=== PATIENT | male | born 1940 | race Caucasian/White ===

== ENCOUNTER 2020-03-05 12:44 | Outpatient (CLI) | payer MEDICARE ==
--- NOTE | 2020-03-05 14:05 | MMO ---
Bilateral MAMMO Bilat Diag [facility]. CLINICAL HISTORY: Patient is 79 years old and is seen for diagnostic exam. The patient has no family history of breast cancer. The patient has no personal history of cancer. VIEWS: The views performed were: bilateral craniocaudal with tomosynthesis; bilateral mediolateral oblique with tomosynthesis; and bilateral mediolateral with tomosynthesis. FILMS COMPARED: The present examination has been compared to a prior imaging study performed at [facility] on 03/05/2020. This study has been interpreted with the assistance of computer-aided detection. MAMMOGRAM FINDINGS: There is fibrogalndular tissue in the subaerolar breasts, greater on the left. NO left breast mass is seen on mammo or US There are no suspicious masses, suspicious calcifications, or new areas of architectural distortion. IMPRESSION: THERE IS NO MAMMOGRAPHIC EVIDENCE OF MALIGNANCY. THE RESULTS OF THIS EXAM WERE SENT TO THE PATIENT. ACR BI-RADS Category 2 - Benign finding MAMMOGRAPHY NOTE: 1. A negative mammogram report should not delay a biopsy if a dominant of clinically suspicious mass is present. 2. Approximately 10% to 15% of breast cancers are not detected by mammography. 3. Adenosis and dense breasts may obscure an underlying neoplasm. Reported by: ANGEL VALDES MD Electonically Signed: [id number]
--- NOTE | 2020-03-05 14:50 | ULT ---
LEFT BREAST ULTRASOUND: HISTORY: Palpable abnormality of the left breast. FINDINGS: Palpable abnormality of the left breast. FINDINGS/IMPRESSION: Correlation is made with mammograms of the same date. Sonographic evaluation of the subareolar region/palpable area of the left breast demonstrates hypoech oic tissue with somewhat star shaped posterior border consistent with gynecomastia. No mass is seen. POS: OFF
== END 2020-03-05 12:45 | disposition home or self-care (01) ==
LOC: BICMAMMO 12:44
PROVIDERS: ATTEND Internal Medicine
DX: N63.20 Unspecified lump in the left breast, unspecified quadrant (principal); R92.8 Other abnormal and inconclusive findings on diagnostic imaging of breast
CPT/HCPCS: 76642; 77066; G0279

== ENCOUNTER 2020-07-24 07:58 | Outpatient (CLI) | payer MEDICARE | END 2020-07-24 07:59 | disposition home or self-care (01) | LOC: BICRAD 07:58 | PROVIDERS: ATTEND Internal Medicine | DX: S20.212A Contusion of left front wall of thorax, initial encounter (principal); S22.42XA Multiple fractures of ribs, left side, initial encounter for closed fracture; J98.4 Other disorders of lung | CPT/HCPCS: 71046 ==

== ENCOUNTER 2022-05-12 08:00 | Outpatient (CLI) | payer MEDICARE | END 2022-05-12 08:01 | disposition home or self-care (01) | LOC: PET 08:00 | PROVIDERS: ATTEND Internal Medicine Medical Oncology | DX: C43.39 Malignant melanoma of other parts of face (principal); R91.1 Solitary pulmonary nodule | CPT/HCPCS: 78816; A9552 ==

== ENCOUNTER 2022-09-14 06:49 | Inpatient (IN) | payer MEDICARE ==
[2022-09-14 07:53] LABS: ALT (SGPT) 28 U/L (8-55); AST (SGOT) 42 U/L (5-34); Albumin 3.7 g/dL (3.4-4.8); Alkaline Phosphatase 83 U/L (40-110); Anion Gap 17 mmol/L (10-20); BUN (Urea Nitrogen) 94 mg/dL (8.4-25.7); Bilirubin, Total 0.4 mg/dL (0.2-1.2); Calc. Creatinine Clearance 0 mL/min (70-130); Calcium 8.4 mg/dL (7.8-10.44); Carbon Dioxide 21 mmol/L (23-31); Chloride 101 mmol/L (98-107); Estimated GFR 17; Globulin 2.7 g/dL (2.4-3.5); Glucose 145 mg/dL (83-110); Potassium 3.9 mmol/L (3.5-5.1); Protein, Total 6.4 g/dL (5.8-8.1); Sodium 135 mmol/L (136-145)
[2022-09-14 08:05] LABS: #Eosinphils 0.2 thou/uL (0.0-0.7); #Lymphocytes 0.7 thou/uL (1.20-3.40); #Monocytes 0.6 thou/uL (0.11-0.59); #Neutrophils 5.2 thou/uL (1.40-6.50); %Basophils 0.1 % (0.0-1.0); %Eosinophils 2.2 % (0.0-10.0); %Monocytes 9.5 % (0.0-10.0); %Neutrophils 78.1 % (42.0-75.0); Eosinophils 2 % (0-10); Hemoglobin 9.9 g/dL (14.0-18.0); Lymphocytes 10 % (21-51); MDiff Complete? YES; Mean Corpuscular Hemoglobin 35.2 pg (27.0-31.0); Mean Platelet Volume 9.4 fL (7.4-10.4); Monocytes 7 % (0-10); Neutrophil 80 % (42-75); Platelet Count 115 10x3/uL (130-400); Platelet Morphology Comment Appears Decreased; Polychromasia SLIGHT = 2-3 cells (100X) (0-2/hpf); RBC Distribution Width 14.1 % (11.5-14.5); Reactive Lymphocytes 1 % (0-10); Red Blood Cell (RBC) Count 2.81 mill/uL (4.70-6.10); White Blood Cell (WBC) Count 6.7 10x3/uL (4.8-10.8)
[2022-09-14] MEDS ORDERED: Furosemide 40 MG/4 ML VIAL ONE (08:34)
[2022-09-14] MEDS ORDERED: Albumin 25% 25 GM/100 ML BOT IVPB SCH ×2 (09:15→12:00)
[2022-09-14] MEDS ORDERED: Ondansetron PF 4 MG/2 ML Vial IVP PRN (09:21)
[2022-09-14] MEDS: Albumin 25% 25 GM/100 ML BOT IVPB SCH ×2 (15:34→21:08)
[2022-09-14] MEDS: Furosemide 40 MG/4 ML VIAL SLOW IVP SCH (15:34)
[2022-09-14] MEDS: Carvedilol 6.25 MG TAB PO SCH (17:42)
[2022-09-14 17:49] VITALS: BMI 25.0
[2022-09-14] MEDS: Atorvastatin Calcium 40 MG TAB PO SCH (20:48)
[2022-09-14] MEDS: Acetaminophen 325 MG TAB PO PRN (20:49)
[2022-09-15] MEDS: Albumin 25% 25 GM/100 ML BOT IVPB SCH ×4 (03:43→17:45)
[2022-09-15] MEDS: Furosemide 40 MG/4 ML VIAL SLOW IVP SCH ×2 (05:36→14:51)
[2022-09-15] MEDS: Levothyroxine Sodium 100 MCG TAB PO SCH (05:36)
[2022-09-15 06:36] LABS: #Eosinphils 0.1 thou/uL (0.0-0.7); #Lymphocytes 0.6 thou/uL (1.20-3.40); #Monocytes 0.5 thou/uL (0.11-0.59); #Neutrophils 4.1 thou/uL (1.40-6.50); %Basophils 0.3 % (0.0-1.0); %Eosinophils 2.3 % (0.0-10.0); %Lymphocytes 11.4 % (21.0-51.0); Hemoglobin 8.9 g/dL (14.0-18.0); Mean Corpuscular HGB CONC 33.3 g/dL (32.0-36.0); Mean Corpuscular Hemoglobin 35.6 pg (27.0-31.0); Mean Platelet Volume 8.9 fL (7.4-10.4); Platelet Count 111 10x3/uL (130-400); Red Blood Cell (RBC) Count 2.49 mill/uL (4.70-6.10); White Blood Cell (WBC) Count 5.4 10x3/uL (4.8-10.8)
[2022-09-15 06:57] LABS: Anion Gap 16 mmol/L (10-20); BUN (Urea Nitrogen) 97 mg/dL (8.4-25.7); Calc. Creatinine Clearance 16 mL/min (70-130); Calcium 8.5 mg/dL (7.8-10.44); Carbon Dioxide 23 mmol/L (23-31); Chloride 101 mmol/L (98-107); Estimated GFR 16; Glucose 105 mg/dL (83-110); Potassium 3.5 mmol/L (3.5-5.1); Sodium 136 mmol/L (136-145)
[2022-09-15] MEDS: Amiodarone 200 MG TAB PO SCH (08:35)
[2022-09-15] MEDS: Carvedilol 6.25 MG TAB PO SCH ×2 (08:36→17:45)
[2022-09-15] MEDS ORDERED: Rivaroxaban 10 MG TAB PO SCH (09:00)
[2022-09-15] MEDS: Atorvastatin Calcium 40 MG TAB PO SCH (20:18)
[2022-09-16] MEDS: Albumin 25% 25 GM/100 ML BOT IVPB SCH ×4 (00:05→16:46)
[2022-09-16] MEDS: Furosemide 40 MG/4 ML VIAL SLOW IVP SCH ×2 (05:19→14:17)
[2022-09-16] MEDS: Levothyroxine Sodium 100 MCG TAB PO SCH (05:19)
[2022-09-16] MEDS: Carvedilol 6.25 MG TAB PO SCH ×2 (07:52→16:46)
[2022-09-16] MEDS: Amiodarone 200 MG TAB PO SCH (07:52)
[2022-09-16] MEDS: Acetaminophen 325 MG TAB PO PRN ×2 (07:52→19:56)
[2022-09-16 08:47] LABS: Anion Gap 17 mmol/L (10-20); BUN (Urea Nitrogen) 103 mg/dL (8.4-25.7); Calc. Creatinine Clearance 16 mL/min (70-130); Calcium 8.8 mg/dL (7.8-10.44); Carbon Dioxide 22 mmol/L (23-31); Chloride 100 mmol/L (98-107); Estimated GFR 16; Glucose 100 mg/dL (83-110); Potassium 3.4 mmol/L (3.5-5.1); Sodium 136 mmol/L (136-145)
[2022-09-16 09:31] LABS: #Eosinphils 0.1 thou/uL (0.0-0.7); #Lymphocytes 0.7 thou/uL (1.20-3.40); #Monocytes 0.6 thou/uL (0.11-0.59); #Neutrophils 4.3 thou/uL (1.40-6.50); %Basophils 0.1 % (0.0-1.0); %Eosinophils 2.1 % (0.0-10.0); %Lymphocytes 12.2 % (21.0-51.0); %Neutrophils 74.5 % (42.0-75.0); Hemoglobin 8.3 g/dL (14.0-18.0); Mean Corpuscular HGB CONC 31.6 g/dL (32.0-36.0); Mean Corpuscular Hemoglobin 33.7 pg (27.0-31.0); Mean Platelet Volume 9.5 fL (7.4-10.4); Platelet Count 111 10x3/uL (130-400); RBC Distribution Width 14.3 % (11.5-14.5); Red Blood Cell (RBC) Count 2.47 mill/uL (4.70-6.10); White Blood Cell (WBC) Count 5.4 10x3/uL (4.8-10.8)
[2022-09-16] MEDS ORDERED: EPOETIN ALFA-EPBX (ESRD) 10,000 UNIT/ML VIAL SC SCH (11:15)
[2022-09-16] MEDS: Rivaroxaban 15 MG TAB PO SCH (16:46)
[2022-09-16] MEDS ORDERED: Tamsulosin HCl 0.4 MG CAP PO SCH (18:45)
[2022-09-16] MEDS: Morphine 2 MG/ML VIAL SLOW IVP SCH ×2 (19:58→23:19)
[2022-09-16] MEDS: Atorvastatin Calcium 40 MG TAB PO SCH (21:20)
[2022-09-16] MEDS: Sacubitril 24MG/Valsartan 26 MG TAB PO SCH (21:22)
[2022-09-16] MEDS ORDERED: Morphine 2 MG/ML VIAL SLOW IVP SCH (23:00)
[2022-09-17] MEDS: Albumin 25% 25 GM/100 ML BOT IVPB SCH ×2 (00:59→05:24)
[2022-09-17] MEDS: Levothyroxine Sodium 100 MCG TAB PO SCH (05:24)
[2022-09-17] MEDS: Furosemide 40 MG/4 ML VIAL SLOW IVP SCH ×2 (05:24→13:16)
[2022-09-17 07:18] LABS: #Eosinphils 0.1 thou/uL (0.0-0.7); #Lymphocytes 0.9 thou/uL (1.20-3.40); #Monocytes 0.7 thou/uL (0.11-0.59); #Neutrophils 6.1 thou/uL (1.40-6.50); %Basophils 0.1 % (0.0-1.0); %Lymphocytes 11.2 % (21.0-51.0); %Monocytes 9.5 % (0.0-10.0); %Neutrophils 78.2 % (42.0-75.0); Hemoglobin 8.7 g/dL (14.0-18.0); Mean Corpuscular HGB CONC 33.8 g/dL (32.0-36.0); Mean Corpuscular Hemoglobin 35.6 pg (27.0-31.0); Mean Platelet Volume 9.4 fL (7.4-10.4); Platelet Count 110 10x3/uL (130-400); RBC Distribution Width 14.3 % (11.5-14.5); Red Blood Cell (RBC) Count 2.44 mill/uL (4.70-6.10); White Blood Cell (WBC) Count 7.8 10x3/uL (4.8-10.8)
[2022-09-17 07:34] LABS: Anion Gap 18 mmol/L (10-20); BUN (Urea Nitrogen) 110 mg/dL (8.4-25.7); Calc. Creatinine Clearance 15 mL/min (70-130); Calcium 8.9 mg/dL (7.8-10.44); Carbon Dioxide 22 mmol/L (23-31); Chloride 97 mmol/L (98-107); Estimated GFR 15; Glucose 100 mg/dL (83-110); Potassium 3.3 mmol/L (3.5-5.1); Sodium 134 mmol/L (136-145)
[2022-09-17] MEDS: Sacubitril 24MG/Valsartan 26 MG TAB PO SCH (08:22)
[2022-09-17] MEDS: Carvedilol 6.25 MG TAB PO SCH ×2 (08:22→17:28)
[2022-09-17] MEDS: Ferrous Sulfate 325 MG TAB PO SCH (08:22)
[2022-09-17] MEDS: Amiodarone 200 MG TAB PO SCH (08:22)
[2022-09-17 08:44] LABS: Iron 27 ug/dL (65-175); Iron Binding Capacity, Total 156 mcg/dL (261-462)
[2022-09-17 08:46] LABS: Anion Gap 19 mmol/L (10-20); BUN (Urea Nitrogen) 112 mg/dL (8.4-25.7); BUN/Creatinine Ratio 28.35; Calc. Creatinine Clearance 15 mL/min (70-130); Calcium 9.1 mg/dL (7.8-10.44); Carbon Dioxide 21 mmol/L (23-31); Chloride 98 mmol/L (98-107); Estimated GFR 14; Glucose 131 mg/dL (83-110); Magnesium 2.7 mg/dL (1.6-2.6); Phosphorus 5.1 mg/dL (2.3-4.7); Potassium 3.2 mmol/L (3.5-5.1); Sodium 135 mmol/L (136-145)
[2022-09-17] MEDS ORDERED: Potassium Chloride 20 MEQ TAB PO SCH (10:30)
[2022-09-17] MEDS ORDERED: Artificial Tear Sol 15 ML BOT EA EYE PRN (12:09)
[2022-09-17] MEDS ORDERED: Moisturizing Cream (Eucerin) 113 GM JAR TOP PRN (12:09)
[2022-09-17] MEDS ORDERED: Polyethylene Glycol 3350 17 GM Packet PO SCH (12:15)
[2022-09-17] MEDS: Sodium Bicarbonate Tab 325 MG TAB PO SCH ×2 (15:46→20:24)
[2022-09-17] MEDS: Rivaroxaban 15 MG TAB PO SCH (17:27)
[2022-09-17] MEDS: Potassium Chloride 20 MEQ TAB PO SCH (20:23)
[2022-09-17] MEDS: Tamsulosin HCl 0.4 MG CAP PO SCH (20:24)
[2022-09-17] MEDS: Atorvastatin Calcium 40 MG TAB PO SCH (20:24)
[2022-09-17] MEDS: Senokot S 8.6-50 MG TAB PO PRN (20:24)
[2022-09-18] MEDS: Levothyroxine Sodium 100 MCG TAB PO SCH (05:05)
[2022-09-18 07:56] LABS: Albumin 4.2 g/dL (3.4-4.8); Anion Gap 19 mmol/L (10-20); BUN (Urea Nitrogen) 117 mg/dL (8.4-25.7); BUN/Creatinine Ratio 27.15; Calc. Creatinine Clearance 13 mL/min (70-130); Calcium 8.7 mg/dL (7.8-10.44); Carbon Dioxide 22 mmol/L (23-31); Chloride 97 mmol/L (98-107); Estimated GFR 13; Glucose 126 mg/dL (83-110); Phosphorus 4.8 mg/dL (2.3-4.7); Potassium 4.3 mmol/L (3.5-5.1); Sodium 134 mmol/L (136-145)
[2022-09-18] MEDS: Potassium Chloride 20 MEQ TAB PO SCH ×2 (08:03→20:10)
[2022-09-18] MEDS: Ferrous Sulfate 325 MG TAB PO SCH ×2 (08:03→20:10)
[2022-09-18] MEDS: Amiodarone 200 MG TAB PO SCH (08:03)
[2022-09-18] MEDS: Sodium Bicarbonate Tab 325 MG TAB PO SCH ×3 (08:03→20:10)
[2022-09-18] MEDS: Polyethylene Glycol 3350 17 GM Packet PO SCH (08:04)
[2022-09-18] MEDS: Carvedilol 6.25 MG TAB PO SCH (10:50)
[2022-09-18] MEDS ORDERED: Iron, Sodium Ferric Gluconate 250 MG in Sodium Chloride 0.9% 250 ML 250 ML IVPB SCH (14:30)
[2022-09-18] MEDS ORDERED: EPOETIN ALFA-EPBX (ESRD) 10,000 UNIT/ML VIAL SC SCH (14:30)
[2022-09-18] MEDS ORDERED: Metolazone 5 MG TAB PO SCH (14:30)
[2022-09-18] MEDS ORDERED: Furosemide 40 MG/4 ML VIAL SLOW IVP SCH ×3 (14:30→21:00)
[2022-09-18] MEDS: Bisacodyl 5 MG TAB PO PRN (16:04)
[2022-09-18] MEDS: Rivaroxaban 15 MG TAB PO SCH (16:20)
[2022-09-18] MEDS: Tamsulosin HCl 0.4 MG CAP PO SCH (20:10)
[2022-09-18] MEDS: Carvedilol 3.125 MG TAB PO SCH (20:10)
[2022-09-18] MEDS: Atorvastatin Calcium 40 MG TAB PO SCH (20:10)
[2022-09-18] MEDS: Senokot S 8.6-50 MG TAB PO PRN (23:43)
[2022-09-19] MEDS: Acetaminophen 325 MG TAB PO PRN (01:13)
[2022-09-19] MEDS: Levothyroxine Sodium 100 MCG TAB PO SCH (05:31)
[2022-09-19 06:19] LABS: Anion Gap 17 mmol/L (10-20); BUN (Urea Nitrogen) 124 mg/dL (8.4-25.7); Calc. Creatinine Clearance 13 mL/min (70-130); Calcium 8.4 mg/dL (7.8-10.44); Carbon Dioxide 23 mmol/L (23-31); Chloride 99 mmol/L (98-107); Estimated GFR 13; Glucose 104 mg/dL (83-110); Potassium 5.5 mmol/L (3.5-5.1); Sodium 133 mmol/L (136-145)
[2022-09-19] MEDS ORDERED: Calcium Gluconate 4.6 MEQ in Sodium Chloride 0.9% 100 ML IVPB ONE (07:19)
[2022-09-19] MEDS ORDERED: Dextrose 50% Abboject 50 ML SYRINGE SLOW IVP SCH (07:19)
[2022-09-19] MEDS ORDERED: Insulin Regular 300 UNITS/3 ML VIAL IVP SCH (07:30)
[2022-09-19] MEDS: CALCIUM GLUC 1 GM/NS 50 ML 1 GM in Premix Bag 1 BAG IVPB SCH ×2 (09:00→09:15)
[2022-09-19] MEDS: Sodium Bicarbonate Tab 325 MG TAB PO SCH ×3 (09:13→20:03)
[2022-09-19] MEDS: Amiodarone 200 MG TAB PO SCH (09:14)
[2022-09-19] MEDS: Ferrous Sulfate 325 MG TAB PO SCH ×2 (09:14→20:03)
[2022-09-19] MEDS: Carvedilol 3.125 MG TAB PO SCH ×2 (09:14→20:02)
[2022-09-19] MEDS: Furosemide 40 MG/4 ML VIAL SLOW IVP SCH (09:14)
[2022-09-19] MEDS: Polyethylene Glycol 3350 17 GM Packet PO SCH (11:02)
[2022-09-19 13:51] LABS: Anion Gap 17 mmol/L (10-20); BUN (Urea Nitrogen) 123 mg/dL (8.4-25.7); Calc. Creatinine Clearance 13 mL/min (70-130); Calcium 9.2 mg/dL (7.8-10.44); Carbon Dioxide 25 mmol/L (23-31); Chloride 97 mmol/L (98-107); Estimated GFR 12; Glucose 90 mg/dL (83-110); Sodium 134 mmol/L (136-145)
[2022-09-19] MEDS: Atorvastatin Calcium 40 MG TAB PO SCH (20:02)
[2022-09-19] MEDS: Tamsulosin HCl 0.4 MG CAP PO SCH (20:03)
[2022-09-20] MEDS: Levothyroxine Sodium 100 MCG TAB PO SCH (05:00)
[2022-09-20 06:09] LABS: #Eosinphils 0.3 thou/uL (0.0-0.7); #Monocytes 0.9 thou/uL (0.11-0.59); #Neutrophils 5.5 thou/uL (1.40-6.50); %Basophils 0.1 % (0.0-1.0); %Lymphocytes 12.5 % (21.0-51.0); %Monocytes 12.2 % (0.0-10.0); %Neutrophils 71.2 % (42.0-75.0); Hemoglobin 8.8 g/dL (14.0-18.0); Mean Corpuscular HGB CONC 33.5 g/dL (32.0-36.0); Mean Corpuscular Hemoglobin 35.3 pg (27.0-31.0); Mean Platelet Volume 8.3 fL (7.4-10.4); Platelet Count 159 10x3/uL (130-400); RBC Distribution Width 14.5 % (11.5-14.5); Red Blood Cell (RBC) Count 2.49 mill/uL (4.70-6.10); White Blood Cell (WBC) Count 7.7 10x3/uL (4.8-10.8)
[2022-09-20 06:36] LABS: Anion Gap 18 mmol/L (10-20); Calc. Creatinine Clearance 14 mL/min (70-130); Calcium 8.7 mg/dL (7.8-10.44); Carbon Dioxide 23 mmol/L (23-31); Chloride 98 mmol/L (98-107); Estimated GFR 13; Glucose 110 mg/dL (83-110); Potassium 4.5 mmol/L (3.5-5.1); Sodium 134 mmol/L (136-145)
[2022-09-20 06:48] LABS: BUN (Urea Nitrogen) 113 mg/dL (8.4-25.7)
[2022-09-20] MEDS: Carvedilol 3.125 MG TAB PO SCH ×2 (08:25→20:04)
[2022-09-20] MEDS: Sodium Bicarbonate Tab 325 MG TAB PO SCH ×3 (08:26→20:03)
[2022-09-20] MEDS ORDERED: Tuberculin PPD 0.1 ML VIAL I-DERMAL SCH (09:00)
[2022-09-20] MEDS ORDERED: EPOETIN ALFA-EPBX (ESRD) 10,000 UNIT/ML VIAL SC SCH (10:00)
[2022-09-20 10:20] LABS: HBSAB Concentration Less than 8.00 mIU/mL; HBSAg Index 0.27 S/CO (0-0.99); Hep B Core Total Ab Non-Reactive (NonReactive); Hep B Core Total Index 0.09 S/CO (0-0.79); Hep B Surf AB Non-Reactive (NonReactive); Hep B Surf Ag Non-Reactive S/CO (NonReactive); Hep C IgG Ab Non-Reactive (NonReactive); Hep C Index 0.09 S/CO (0-0.79)
[2022-09-20] MEDS ORDERED: Bupivacaine HCl 0.5%/Epinephrine 1:200,000/PF 30 ml Vial ONE (11:44)
[2022-09-20] MEDS ORDERED: Lidocaine 2% PF 5 ML VIAL ONE (11:44)
[2022-09-20] MEDS ORDERED: Heparin 10,000 UNITS/ 10 ML VIAL ONE (11:44)
[2022-09-20] MEDS ORDERED: FENTANYL 50 MCG/ML 1 ML VIAL ONE (11:45)
[2022-09-20] MEDS ORDERED: Ketamine 50 MG/ML (10ML VIAL) ONE (11:48)
[2022-09-20] MEDS ORDERED: PROPOFOL 20 ML ONE (11:48)
[2022-09-20] MEDS ORDERED: Lidocaine 1% PF 5 ML VIAL ONE (12:04)
[2022-09-20] MEDS ORDERED: Ondansetron HCl/PF 4 MG/2 ML Vial IVP PRN (12:32)
[2022-09-20] MEDS ORDERED: Promethazine HCl 25 MG/ML VIAL IM PRN (12:32)
[2022-09-20] MEDS: Amiodarone 200 MG TAB PO SCH (14:48)
[2022-09-20] MEDS: Furosemide 40 MG/4 ML VIAL SLOW IVP SCH (14:48)
[2022-09-20] MEDS: Ferrous Sulfate 325 MG TAB PO SCH ×2 (14:49→20:04)
[2022-09-20] MEDS: Polyethylene Glycol 3350 17 GM Packet PO SCH (14:49)
[2022-09-20] MEDS: Acetaminophen 325 MG TAB PO PRN (20:02)
[2022-09-20] MEDS: Atorvastatin Calcium 40 MG TAB PO SCH (20:03)
[2022-09-20] MEDS: Tamsulosin HCl 0.4 MG CAP PO SCH (20:04)
[2022-09-21] MEDS: Acetaminophen 325 MG TAB PO PRN ×2 (02:25→20:45)
[2022-09-21] MEDS: Levothyroxine Sodium 100 MCG TAB PO SCH ×2 (05:22→05:28)
[2022-09-21] MEDS: Bisacodyl 5 MG TAB PO PRN (05:28)
[2022-09-21] MEDS: Senokot S 8.6-50 MG TAB PO PRN (05:28)
[2022-09-21 06:52] LABS: #Eosinphils 0.2 thou/uL (0.0-0.7); #Lymphocytes 0.9 thou/uL (1.20-3.40); #Monocytes 0.7 thou/uL (0.11-0.59); #Neutrophils 4.9 thou/uL (1.40-6.50); %Basophils 0.2 % (0.0-1.0); %Eosinophils 3.4 % (0.0-10.0); %Lymphocytes 12.7 % (21.0-51.0); %Monocytes 10.8 % (0.0-10.0); %Neutrophils 72.9 % (42.0-75.0); Hemoglobin 8.4 g/dL (14.0-18.0); Mean Corpuscular HGB CONC 32.3 g/dL (32.0-36.0); Mean Corpuscular Hemoglobin 34.4 pg (27.0-31.0); Mean Platelet Volume 7.6 fL (7.4-10.4); Platelet Count 165 10x3/uL (130-400); RBC Distribution Width 14.8 % (11.5-14.5); Red Blood Cell (RBC) Count 2.45 mill/uL (4.70-6.10); White Blood Cell (WBC) Count 6.7 10x3/uL (4.8-10.8)
[2022-09-21 07:13] LABS: Anion Gap 16 mmol/L (10-20); Calc. Creatinine Clearance 14 mL/min (70-130); Calcium 8.9 mg/dL (7.8-10.44); Carbon Dioxide 24 mmol/L (23-31); Chloride 100 mmol/L (98-107); Estimated GFR 14; Glucose 129 mg/dL (83-110); Potassium 4.4 mmol/L (3.5-5.1); Sodium 136 mmol/L (136-145)
[2022-09-21 07:24] LABS: BUN (Urea Nitrogen) 113 mg/dL (8.4-25.7)
[2022-09-21] MEDS ORDERED: Heparin 10,000 UNITS/ 10 ML VIAL ONE (08:54)
[2022-09-21 10:18] LABS: HBSAB Concentration Less than 8.00 mIU/mL; HBSAg Index 0.27 S/CO (0-0.99); Hep B Core Total Ab Non-Reactive (NonReactive); Hep B Core Total Index 0.08 S/CO (0-0.79); Hep B Surf AB Non-Reactive (NonReactive); Hep B Surf Ag Non-Reactive S/CO (NonReactive); Hep C IgG Ab Non-Reactive (NonReactive); Hep C Index 0.08 S/CO (0-0.79)
[2022-09-21] MEDS: Ferrous Sulfate 325 MG TAB PO SCH ×2 (10:26→20:45)
[2022-09-21] MEDS: Amiodarone 200 MG TAB PO SCH (10:26)
[2022-09-21] MEDS: Carvedilol 3.125 MG TAB PO SCH ×2 (10:27→20:45)
[2022-09-21] MEDS: Polyethylene Glycol 3350 17 GM Packet PO SCH ×2 (10:36→10:38)
[2022-09-21] MEDS: Rivaroxaban 15 MG TAB PO SCH (17:23)
[2022-09-21] MEDS: Atorvastatin Calcium 40 MG TAB PO SCH (20:42)
[2022-09-21] MEDS: Tamsulosin HCl 0.4 MG CAP PO SCH (20:45)
[2022-09-22] MEDS: Levothyroxine Sodium 100 MCG TAB PO SCH (06:14)
[2022-09-22 07:53] LABS: Anion Gap 20 mmol/L (10-20); BUN (Urea Nitrogen) 105 mg/dL (8.4-25.7); Calc. Creatinine Clearance 15 mL/min (70-130); Calcium 8.4 mg/dL (7.8-10.44); Carbon Dioxide 20 mmol/L (23-31); Chloride 100 mmol/L (98-107); Estimated GFR 15; Glucose 104 mg/dL (83-110); Potassium 4.5 mmol/L (3.5-5.1); Sodium 135 mmol/L (136-145)
[2022-09-22] MEDS ORDERED: Heparin 10,000 UNITS/ 10 ML VIAL ONE (09:00)
[2022-09-22] MEDS ORDERED: EPOETIN ALFA-EPBX (ESRD) 10,000 UNIT/ML VIAL SC SCH (09:00)
[2022-09-22] MEDS: Amiodarone 200 MG TAB PO SCH (09:12)
[2022-09-22] MEDS: Polyethylene Glycol 3350 17 GM Packet PO SCH (09:12)
[2022-09-22] MEDS: Carvedilol 3.125 MG TAB PO SCH ×2 (09:12→20:20)
[2022-09-22] MEDS: Ferrous Sulfate 325 MG TAB PO SCH ×2 (09:12→20:20)
[2022-09-22] MEDS: Rivaroxaban 15 MG TAB PO SCH (16:32)
[2022-09-22] MEDS: Tamsulosin HCl 0.4 MG CAP PO SCH (20:20)
[2022-09-22] MEDS: Atorvastatin Calcium 40 MG TAB PO SCH (20:20)
[2022-09-23] MEDS: Levothyroxine Sodium 100 MCG TAB PO SCH (05:55)
[2022-09-23 06:50] LABS: #Eosinphils 0.2 thou/uL (0.0-0.7); #Lymphocytes 0.8 thou/uL (1.20-3.40); #Monocytes 0.9 thou/uL (0.11-0.59); #Neutrophils 5.1 thou/uL (1.40-6.50); %Basophils 0.2 % (0.0-1.0); %Eosinophils 2.6 % (0.0-10.0); %Lymphocytes 11.2 % (21.0-51.0); %Monocytes 13.5 % (0.0-10.0); %Neutrophils 72.5 % (42.0-75.0); Hemoglobin 8.4 g/dL (14.0-18.0); Mean Corpuscular HGB CONC 32.5 g/dL (32.0-36.0); Mean Corpuscular Hemoglobin 34.9 pg (27.0-31.0); Mean Platelet Volume 7.5 fL (7.4-10.4); Platelet Count 166 10x3/uL (130-400); RBC Distribution Width 14.8 % (11.5-14.5); Red Blood Cell (RBC) Count 2.41 mill/uL (4.70-6.10)
[2022-09-23 07:10] LABS: Anion Gap 13 mmol/L (10-20); BUN (Urea Nitrogen) 70 mg/dL (8.4-25.7); Calc. Creatinine Clearance 19 mL/min (70-130); Calcium 8.5 mg/dL (7.8-10.44); Carbon Dioxide 27 mmol/L (23-31); Chloride 100 mmol/L (98-107); Estimated GFR 20; Glucose 106 mg/dL (83-110); Potassium 4.2 mmol/L (3.5-5.1); Sodium 136 mmol/L (136-145)
[2022-09-23] MEDS ORDERED: READ PPD TEST SITE PO SCH (08:00)
[2022-09-23] MEDS: Carvedilol 3.125 MG TAB PO SCH ×2 (11:11→20:23)
[2022-09-23] MEDS: Amiodarone 200 MG TAB PO SCH (11:11)
[2022-09-23] MEDS: Ferrous Sulfate 325 MG TAB PO SCH ×2 (11:11→20:23)
[2022-09-23] MEDS: Polyethylene Glycol 3350 17 GM Packet PO SCH (11:11)
[2022-09-23] MEDS ORDERED: Heparin 10,000 UNITS/ 10 ML VIAL ONE (11:42)
[2022-09-23] MEDS: Tamsulosin HCl 0.4 MG CAP PO SCH (20:23)
[2022-09-23] MEDS: Atorvastatin Calcium 40 MG TAB PO SCH (20:23)
[2022-09-23] MEDS: Apixaban 2.5 MG TAB PO SCH (20:23)
[2022-09-24] MEDS: Levothyroxine Sodium 100 MCG TAB PO SCH (05:54)
[2022-09-24 07:47] LABS: #Eosinphils 0.2 thou/uL (0.0-0.7); #Lymphocytes 0.9 thou/uL (1.20-3.40); #Neutrophils 5.8 thou/uL (1.40-6.50); %Basophils 0.1 % (0.0-1.0); %Lymphocytes 11.8 % (21.0-51.0); %Neutrophils 73.1 % (42.0-75.0); Hemoglobin 8.3 g/dL (14.0-18.0); Mean Corpuscular HGB CONC 32.4 g/dL (32.0-36.0); Mean Platelet Volume 7.8 fL (7.4-10.4); Platelet Count 161 10x3/uL (130-400); RBC Distribution Width 14.8 % (11.5-14.5); Red Blood Cell (RBC) Count 2.37 mill/uL (4.70-6.10); White Blood Cell (WBC) Count 7.9 10x3/uL (4.8-10.8)
[2022-09-24 08:02] LABS: Anion Gap 14 mmol/L (10-20); BUN (Urea Nitrogen) 45 mg/dL (8.4-25.7); Calc. Creatinine Clearance 22 mL/min (70-130); Calcium 8.5 mg/dL (7.8-10.44); Carbon Dioxide 26 mmol/L (23-31); Chloride 98 mmol/L (98-107); Estimated GFR 24; Glucose 102 mg/dL (83-110); Potassium 4.1 mmol/L (3.5-5.1); Sodium 134 mmol/L (136-145)
[2022-09-24] MEDS: Amiodarone 200 MG TAB PO SCH (08:13)
[2022-09-24] MEDS: Carvedilol 3.125 MG TAB PO SCH (08:13)
[2022-09-24] MEDS: Ferrous Sulfate 325 MG TAB PO SCH (08:46)
[2022-09-24] MEDS: Apixaban 2.5 MG TAB PO SCH (08:46)
[2022-09-24] MEDS: Polyethylene Glycol 3350 17 GM Packet PO SCH (09:37)
[2022-09-24 14:38] VITALS: BP 118/71; TEMP 98.6
== END 2022-09-24 16:10 | disposition home or self-care (01) | DRG 674 ==
LOC: ERS 06:49 → ERHOLD 08:42 → T4-A 12:31
PROVIDERS: ADMIT Internal Medicine; ATTEND Internal Medicine
PROC: 0T9B80Z Drainage of Bladder with Drainage Device, Via Natural or Artificial Opening Endoscopic (ICD-10-PCS; 2022-09-17)
PROC: 0JH60XZ Insertion of Tunneled Vascular Access Device into Chest Subcutaneous Tissue and Fascia, Open Approach (ICD-10-PCS; 2022-09-20)
PROC: 02H633Z Insertion of Infusion Device into Right Atrium, Percutaneous Approach (ICD-10-PCS; 2022-09-20)
PROC: B5181ZA Fluoroscopy of Superior Vena Cava using Low Osmolar Contrast, Guidance (ICD-10-PCS; 2022-09-20)
PROC: 5A1D70Z Performance of Urinary Filtration, Intermittent, Less than 6 Hours Per Day (ICD-10-PCS; principal; 2022-09-21)
DX: N17.9 Acute kidney failure, unspecified (principal); E87.1 Hypo-osmolality and hyponatremia; I50.32 Chronic diastolic (congestive) heart failure; I13.2 Hypertensive heart and chronic kidney disease with heart failure and with stage 5 chronic kidney disease, or end stage renal disease; I48.20 Chronic atrial fibrillation, unspecified; I42.9 Cardiomyopathy, unspecified; N13.8 Other obstructive and reflux uropathy; N18.6 End stage renal disease; D63.1 Anemia in chronic kidney disease; D50.9 Iron deficiency anemia, unspecified; E78.5 Hyperlipidemia, unspecified; C43.9 Malignant melanoma of skin, unspecified; E03.9 Hypothyroidism, unspecified; N40.1 Benign prostatic hyperplasia with lower urinary tract symptoms; R33.8 Other retention of urine; I87.2 Venous insufficiency (chronic) (peripheral); I25.10 Atherosclerotic heart disease of native coronary artery without angina pectoris; E87.5 Hyperkalemia; E83.39 Other disorders of phosphorus metabolism; E87.6 Hypokalemia; Z88.8 Allergy status to other drugs, medicaments and biological substances; Z91.041 Radiographic dye allergy status; Z79.899 Other long term (current) drug therapy; Z79.01 Long term (current) use of anticoagulants; Z95.1 Presence of aortocoronary bypass graft; Z79.890 Hormone replacement therapy; Z98.890 Other specified postprocedural states; Z82.49 Family history of ischemic heart disease and other diseases of the circulatory system; Z95.810 Presence of automatic (implantable) cardiac defibrillator
CPT/HCPCS: 36415; 36416; 71045; 74176; 76870; 80048; 80053; 80069; 82728; 83540; 83550; 83735; 83880; 85025; 86580; 86704; 90935; 93005; 93306; 93976; 96374; 96375; C1752; G0257; J0611; J1644; J1815; J1940; J2001; J2272; J2704; J2916; J3010; J7050; J7999; P9047; Q5105

== ENCOUNTER 2022-09-26 11:32 | Inpatient (IN) | payer MEDICARE ==
[2022-09-26 12:28] LABS: #Eosinphils 0.1 thou/uL (0.0-0.7); #Lymphocytes 0.7 thou/uL (1.20-3.40); #Monocytes 0.8 thou/uL (0.11-0.59); #Neutrophils 8.4 thou/uL (1.40-6.50); %Basophils 0.2 % (0.0-1.0); %Eosinophils 1.2 % (0.0-10.0); %Lymphocytes 7.1 % (21.0-51.0); %Monocytes 7.5 % (0.0-10.0); Mean Corpuscular HGB CONC 30.1 g/dL (32.0-36.0); Mean Corpuscular Hemoglobin 32.4 pg (27.0-31.0); Mean Platelet Volume 8.1 fL (7.4-10.4); Platelet Count 200 10x3/uL (130-400); RBC Distribution Width 14.8 % (11.5-14.5); Red Blood Cell (RBC) Count 2.77 mill/uL (4.70-6.10)
[2022-09-26 12:40] LABS: Bilirubin Unable to Interpret (Negative); Blood, Urine Unable to Interpret (Negative); Clarity Hazy (Clear); Glucose, Urine (Dipstick) Unable to Interpret mg/dL (Negative); Ketone, Urine Unable to Interpret mg/dL (Negative); Leukocyte Unable to Interpret Leu/uL (Negative); Nitrite Unable to Interpret (Negative); Protein, Urine (Dipstick) Unable to Interpret mg/dL (Neg-Trace); Specific Gravity, Urine 1.018 (1.002-1.036); Urobilinogen UNABLE TO INTERPRET mg/dL (Less than 2); pH, Urine 5.7 (5.0-9.0)
[2022-09-26 12:46] LABS: Bacteria/HPF 3+ HPF (None Seen); Squamous Epithelial 0-3 HPF (0-3)
[2022-09-26 12:53] LABS: ALT (SGPT) 43 U/L (8-55); AST (SGOT) 138 U/L (5-34); Albumin 3.9 g/dL (3.4-4.8); Alkaline Phosphatase 99 U/L (40-110); Anion Gap 15 mmol/L (10-20); BUN (Urea Nitrogen) 48 mg/dL (8.4-25.7); Bilirubin, Total 0.6 mg/dL (0.2-1.2); Calc. Creatinine Clearance 0 mL/min (70-130); Calcium 8.6 mg/dL (7.8-10.44); Carbon Dioxide 27 mmol/L (23-31); Chloride 94 mmol/L (98-107); Estimated GFR 14; Globulin 2.5 g/dL (2.4-3.5); Glucose 117 mg/dL (83-110); Protein, Total 6.4 g/dL (5.8-8.1); Sodium 132 mmol/L (136-145)
[2022-09-26] MEDS ORDERED: cefTRIAXone (ROCEPHIN) 1 GM VIAL ONE (13:17)
[2022-09-26 13:22] LABS: CKMB 26.7 ng/mL (0-6.6)
[2022-09-26] MEDS ORDERED: Aspirin Chewable 81 MG TAB ONE (13:42)
[2022-09-26 15:54] LABS: Lactic Acid 1.1 mmol/L (0.5-2.2)
[2022-09-26 16:08] LABS: Critical Call Chem Troponin I RESULT DECREASING; Troponin I 0.519 ng/mL (< 0.028)
[2022-09-26] MEDS ORDERED: Acetaminophen 325 MG TAB PO PRN (16:35)
[2022-09-26] MEDS ORDERED: Ondansetron PF 4 MG/2 ML Vial IVP PRN (16:35)
[2022-09-26] MEDS ORDERED: Nitroglycerin 0.4 MG TAB (25 Tab Bottle) SL PRN (16:38)
[2022-09-26] MEDS: Carvedilol 3.125 MG TAB PO SCH (17:35)
[2022-09-26] MEDS ORDERED: Atorvastatin Calcium 40 MG TAB PO SCH (21:00)
[2022-09-26 21:14] LABS: Troponin I 0.542 ng/mL (< 0.028)
[2022-09-26 22:24] VITALS: BMI 26.6
[2022-09-26] MEDS: Tamsulosin HCl 0.4 MG CAP PO SCH (22:24)
[2022-09-26] MEDS: Apixaban 2.5 MG TAB PO SCH (22:24)
[2022-09-27 04:51] LABS: #Eosinphils 0.3 thou/uL (0.0-0.7); #Lymphocytes 0.9 thou/uL (1.20-3.40); #Monocytes 0.8 thou/uL (0.11-0.59); #Neutrophils 7.5 thou/uL (1.40-6.50); %Basophils 0.2 % (0.0-1.0); %Eosinophils 3.6 % (0.0-10.0); %Monocytes 8.1 % (0.0-10.0); %Neutrophils 79.2 % (42.0-75.0); Hemoglobin 8.3 g/dL (14.0-18.0); Mean Corpuscular Hemoglobin 35.4 pg (27.0-31.0); Platelet Count 197 10x3/uL (130-400); RBC Distribution Width 14.6 % (11.5-14.5); Red Blood Cell (RBC) Count 2.35 mill/uL (4.70-6.10); White Blood Cell (WBC) Count 9.5 10x3/uL (4.8-10.8)
[2022-09-27 05:06] LABS: Anion Gap 15 mmol/L (10-20); BUN (Urea Nitrogen) 57 mg/dL (8.4-25.7); Calc. Creatinine Clearance 14 mL/min (70-130); Carbon Dioxide 24 mmol/L (23-31); Chloride 95 mmol/L (98-107); Estimated GFR 13; Glucose 122 mg/dL (83-110); Potassium 3.9 mmol/L (3.5-5.1); Sodium 130 mmol/L (136-145)
[2022-09-27] MEDS: Levothyroxine Sodium 100 MCG TAB PO SCH (05:42)
[2022-09-27] MEDS ORDERED: Heparin 10,000 UNITS/ 10 ML VIAL ONE (08:51)
[2022-09-27] MEDS ORDERED: EPOETIN ALFA-EPBX (ESRD) 4,000 UNIT/ML VIAL SC SCH (09:00)
[2022-09-27] MEDS ORDERED: EPOETIN ALFA-EPBX (ESRD) 2,000 UNIT/ML VIAL SC SCH (09:00)
[2022-09-27] MEDS ORDERED: EPOETIN ALFA-EPBX (ESRD) 3,000 UNIT/ML VIAL IVP SCH (09:00)
[2022-09-27] MEDS ORDERED: EPOETIN ALFA-EPBX (ESRD) 2,000 UNIT/ML VIAL IVP SCH (09:00)
[2022-09-27] MEDS ORDERED: EPOETIN ALFA-EPBX (ESRD) 3,000 UNIT/ML VIAL SC SCH (09:00)
[2022-09-27] MEDS: Carvedilol 3.125 MG TAB PO SCH (10:09)
[2022-09-27] MEDS: Amiodarone 200 MG TAB PO SCH (10:10)
[2022-09-27] MEDS: Apixaban 2.5 MG TAB PO SCH ×2 (10:10→20:32)
[2022-09-27] MEDS ORDERED: cefTRIAXone\\ROCEPHIN 1 GM in Sodium Chloride 0.9% 100 ML IVPB SCH (13:00)
[2022-09-27] MEDS: Tamsulosin HCl 0.4 MG CAP PO SCH (20:32)
[2022-09-27] MEDS ORDERED: Atorvastatin Calcium 40 MG TAB PO SCH (21:00)
[2022-09-28] MEDS: Levothyroxine Sodium 100 MCG TAB PO SCH (05:02)
[2022-09-28 07:54] LABS: #Eosinphils 0.3 thou/uL (0.0-0.7); #Lymphocytes 1.1 thou/uL (1.20-3.40); #Monocytes 0.9 thou/uL (0.11-0.59); #Neutrophils 8.1 thou/uL (1.40-6.50); %Basophils 0.4 % (0.0-1.0); %Eosinophils 3.3 % (0.0-10.0); %Lymphocytes 10.2 % (21.0-51.0); %Monocytes 8.4 % (0.0-10.0); %Neutrophils 77.7 % (42.0-75.0); Hemoglobin 8.7 g/dL (14.0-18.0); Mean Corpuscular HGB CONC 31.7 g/dL (32.0-36.0); Mean Corpuscular Hemoglobin 34.4 pg (27.0-31.0); Mean Platelet Volume 7.5 fL (7.4-10.4); Platelet Count 261 10x3/uL (130-400); RBC Distribution Width 14.9 % (11.5-14.5); Red Blood Cell (RBC) Count 2.52 mill/uL (4.70-6.10); White Blood Cell (WBC) Count 10.4 10x3/uL (4.8-10.8)
[2022-09-28 08:01] LABS: ALT (SGPT) 30 U/L (8-55); AST (SGOT) 73 U/L (5-34); Albumin 2.9 g/dL (3.4-4.8); Alkaline Phosphatase 82 U/L (40-110); Anion Gap 12 mmol/L (10-20); BUN (Urea Nitrogen) 35 mg/dL (8.4-25.7); Bilirubin, Total 0.5 mg/dL (0.2-1.2); Calc. Creatinine Clearance 19 mL/min (70-130); Calcium 7.7 mg/dL (7.8-10.44); Carbon Dioxide 28 mmol/L (23-31); Chloride 96 mmol/L (98-107); Estimated GFR 18; Glucose 97 mg/dL (83-110); Potassium 4.2 mmol/L (3.5-5.1); Protein, Total 4.9 g/dL (5.8-8.1); Sodium 132 mmol/L (136-145)
[2022-09-28] MEDS: Amiodarone 200 MG TAB PO SCH (08:43)
[2022-09-28] MEDS: Apixaban 2.5 MG TAB PO SCH (08:43)
[2022-09-28 12:03] VITALS: BP 105/56; TEMP 97.6
[2022-09-28] MEDS ORDERED: cefTRIAXone\\ROCEPHIN 1 GM in Sodium Chloride 0.9% 100 ML IVPB SCH (18:00)
== END 2022-09-28 15:40 | disposition home or self-care (01) | DRG 640 ==
LOC: ERS 11:32 → ERHOLD 14:05 → INTOOBSV 14:05 → 2NO 22:09 → OBSVTOIN 09-28 14:15
PROVIDERS: ADMIT Internal Medicine; ATTEND Internal Medicine
PROC: 5A1D70Z Performance of Urinary Filtration, Intermittent, Less than 6 Hours Per Day (ICD-10-PCS; principal; 2022-09-27)
DX: E86.0 Dehydration (principal); I50.43 Acute on chronic combined systolic (congestive) and diastolic (congestive) heart failure; N18.6 End stage renal disease; I13.2 Hypertensive heart and chronic kidney disease with heart failure and with stage 5 chronic kidney disease, or end stage renal disease; Z66 Do not resuscitate; E86.9 Volume depletion, unspecified; E87.1 Hypo-osmolality and hyponatremia; E03.9 Hypothyroidism, unspecified; I25.10 Atherosclerotic heart disease of native coronary artery without angina pectoris; N32.89 Other specified disorders of bladder; R33.8 Other retention of urine; E78.5 Hyperlipidemia, unspecified; I48.91 Unspecified atrial fibrillation; D63.1 Anemia in chronic kidney disease; I95.89 Other hypotension; Z85.820 Personal history of malignant melanoma of skin; Z88.8 Allergy status to other drugs, medicaments and biological substances; Z91.041 Radiographic dye allergy status; Z79.899 Other long term (current) drug therapy; Z79.890 Hormone replacement therapy; Z99.2 Dependence on renal dialysis; Z95.1 Presence of aortocoronary bypass graft; Z98.890 Other specified postprocedural states; Z82.49 Family history of ischemic heart disease and other diseases of the circulatory system; Z79.01 Long term (current) use of anticoagulants
CPT/HCPCS: 36415; 76856; 80048; 80053; 81003; 81015; 82553; 82728; 83605; 83880; 84484; 85025; 87040; 87086; 93005; 96376; G0378; J0696; J1644; J3490

== ENCOUNTER 2022-10-21 08:28 | Outpatient (CLI) | payer MEDICARE ==
[2022-10-21 10:04] LABS: Hemoglobin 8.3 g/dL (13.5-17.5); Mean Corpuscular HGB CONC 30.9 g/dL (32.0-36.0); Mean Corpuscular Hemoglobin 33.2 pg (27.0-33.0); Mean Corpuscular Volume 107.6 fl (81.2-95.1); Mean Platelet Volume 10.3 fl (7.4-10.4); Platelet Count 156 10x3/uL (150-450); RBC Distribution Width 19.8 % (11.5-14.5); White Blood Cell (WBC) Count 9.4 10x3/uL (3.5-10.5)
[2022-10-21 10:11] LABS: INR-International Normal Ratio 1.2; PTT 31.9 sec (22.0-33.0); Prothrombin Time 12.7 sec (9.5-12.1)
[2022-10-21 10:13] LABS: Anion Gap 21 mmol/L (10-20); BUN (Urea Nitrogen) 63 mg/dL (8.4-25.7); Calc. Creatinine Clearance 0 mL/min (70-130); Calcium 8.2 mg/dL (7.8-10.44); Carbon Dioxide 24 mmol/L (23-31); Chloride 97 mmol/L (98-107); Estimated GFR 8; Glucose 163 mg/dL (83-110); Potassium 4.3 mmol/L (3.5-5.1); Sodium 138 mmol/L (136-145)
== END 2022-10-21 08:29 | disposition home or self-care (01) ==
LOC: LABBT 08:28
PROVIDERS: ATTEND Urology
DX: Z01.818 Encounter for other preprocedural examination (principal); N32.0 Bladder-neck obstruction; I48.0 Paroxysmal atrial fibrillation; I25.5 Ischemic cardiomyopathy; I25.10 Atherosclerotic heart disease of native coronary artery without angina pectoris; N18.6 End stage renal disease; R33.8 Other retention of urine; N40.1 Benign prostatic hyperplasia with lower urinary tract symptoms
CPT/HCPCS: 80048; 85027; 85610; 85730; 87086; 93005; 93010

== ENCOUNTER 2022-10-27 07:32 | Day surgery (SDC) | payer MEDICARE ==
[2022-10-26 14:11] VITALS: BMI 23.5
[2022-10-27] MEDS ORDERED: fentaNYL 50 mcg/mL 1 mL Vial ONE (09:10)
[2022-10-27] MEDS ORDERED: Triamcinolone 40 MG/ML VIAL ONE (09:12)
[2022-10-27] MEDS ORDERED: Levofloxacin 500 mg/D5W 100 ml Premix Bag ONE (09:28)
[2022-10-27 09:38] LABS: Anion Gap 18 mmol/L (10-20); BUN (Urea Nitrogen) 29 mg/dL (8.4-25.7); Calc. Creatinine Clearance 12 mL/min (70-130); Calcium 8.7 mg/dL (7.8-10.44); Carbon Dioxide 28 mmol/L (23-31); Chloride 99 mmol/L (98-107); Estimated GFR 13; Glucose 102 mg/dL (83-110); Potassium 4.1 mmol/L (3.5-5.1); Sodium 141 mmol/L (136-145)
[2022-10-27] MEDS ORDERED: PROPOFOL 200 MG/20 ML VIAL ONE (09:51)
[2022-10-27] MEDS ORDERED: PHENYLEPHRINE-NS 100 MCG/ML 10 ML SYRINGE ONE (09:51)
[2022-10-27] MEDS ORDERED: Ondansetron PF 4 MG/2 ML Vial ONE (09:51)
[2022-10-27] MEDS ORDERED: Lidocaine 1% PF 5 ML VIAL ONE (09:51)
[2022-10-27] MEDS ORDERED: Heparin 1,000 UNITS/ML VIAL ONE (12:15)
== END 2022-10-27 12:55 | disposition home or self-care (01) ==
LOC: SDC 07:32
PROVIDERS: ATTEND Urology
PROC: 0T7C8ZZ Dilation of Bladder Neck, Via Natural or Artificial Opening Endoscopic (ICD-10-PCS; principal; 2022-10-27)
PROC: 3E0K8GC Introduction of Other Therapeutic Substance into Genitourinary Tract, Via Natural or Artificial Opening Endoscopic (ICD-10-PCS; 2022-10-27)
DX: N32.0 Bladder-neck obstruction (principal); I48.0 Paroxysmal atrial fibrillation; I25.5 Ischemic cardiomyopathy; I25.10 Atherosclerotic heart disease of native coronary artery without angina pectoris; I12.0 Hypertensive chronic kidney disease with stage 5 chronic kidney disease or end stage renal disease; N18.6 End stage renal disease; E78.5 Hyperlipidemia, unspecified; Z79.01 Long term (current) use of anticoagulants; Z79.890 Hormone replacement therapy; Z79.899 Other long term (current) drug therapy; Z88.8 Allergy status to other drugs, medicaments and biological substances; Z91.041 Radiographic dye allergy status; Z95.1 Presence of aortocoronary bypass graft; Z95.5 Presence of coronary angioplasty implant and graft; Z95.810 Presence of automatic (implantable) cardiac defibrillator; Z99.2 Dependence on renal dialysis
CPT/HCPCS: 80048; J1644; J1956; J2405; J2704; J3010; J3301

== ENCOUNTER 2023-11-16 09:59 | Outpatient (CLI) | payer MEDICARE ==
[2023-11-16 11:51] LABS: #Basophils 0.03 10x3/uL (0.0-0.2); #Eosinphils 0.06 10x3/uL (0.0-0.5); #Monocytes 0.71 10x3/uL (0.0-1.1); #Neutrophils 4.98 10x3/uL (1.5-8.4); %Basophils 0.4 % (0.0-2.0); %Eosinophils 0.9 % (0.0-6.0); %Lymphocytes 15.8 % (18.0-47.0); %Monocytes 10.3 % (0.0-10.0); %Neutrophils 72.3 % (40.0-75.0); Hematocrit 33.8 % (38.8-50.0); Hemoglobin 11.1 g/dL (13.5-17.5); Mean Corpuscular HGB CONC 32.8 g/dL (32.0-36.0); Mean Corpuscular Hemoglobin 35.1 pg (27.0-33.0); Mean Platelet Volume 10.3 fl (7.4-10.4); Platelet Count 130 10x3/uL (150-450); RBC Distribution Width 15.8 % (11.5-14.5); Red Blood Cell (RBC) Count 3.16 10x6/uL (4.32-5.72); White Blood Cell (WBC) Count 6.9 10x3/uL (3.5-10.5)
[2023-11-16 12:24] LABS: Anion Gap 18 mmol/L (10-20); BUN (Urea Nitrogen) 48 mg/dL (8.4-25.7); Calc. Creatinine Clearance 0 mL/min (70-130); Calcium 8.2 mg/dL (7.8-10.44); Carbon Dioxide 27 mmol/L (23-31); Chloride 97 mmol/L (98-107); Estimated GFR 9; Glucose 94 mg/dL (83-110); Potassium 3.6 mmol/L (3.5-5.1); Sodium 138 mmol/L (136-145)
== END 2023-11-16 10:00 | disposition home or self-care (01) ==
LOC: LABBT 09:59
PROVIDERS: ATTEND Specialist
DX: Z01.818 Encounter for other preprocedural examination (principal); K42.9 Umbilical hernia without obstruction or gangrene
CPT/HCPCS: 71046; 80048; 85025

== ENCOUNTER 2024-01-05 10:06 | Inpatient (IN) | payer MEDICARE ==
[2024-01-05] MEDS ORDERED: Ondansetron PF 4 MG/2 ML Vial ONE (10:26)
[2024-01-05] MEDS ORDERED: Morphine 2 MG/ML VIAL ONE ×2 (10:26→11:38)
[2024-01-05] MEDS ORDERED: Nitroglycerin 2% Ointment 1 INCH/1 GM Packet ONE (10:26)
[2024-01-05] MEDS ORDERED: Aspirin 325 MG TAB ONE (10:39)
[2024-01-05 10:42] LABS: #Basophils 0.04 10x3/uL (0.0-0.2); %Basophils 0.4 % (0.0-1.0); %Eosinophils 0.3 % (0.0-10.0); %Lymphocytes 11.9 % (21.0-51.0); %Monocytes 7.9 % (0.0-10.0); %Neutrophils 79.2 % (42.0-75.0); Hematocrit 33.9 % (42.0-52.0); Hemoglobin 11.1 g/dL (14.0-18.0); Mean Corpuscular HGB CONC 32.7 g/dL (32.0-36.0); Mean Corpuscular Hemoglobin 34.3 pg (27.0-31.0); Mean Corpuscular Volume 104.6 fL (78.0-98.0); Platelet Count 174 10x3/uL (130-400); RBC Distribution Width 16.3 % (11.5-14.5); Red Blood Cell (RBC) Count 3.24 mill/uL (4.70-6.10)
[2024-01-05 10:55] LABS: ALT (SGPT) 38 U/L (8-55); AST (SGOT) 49 U/L (5-34); Albumin 3.4 g/dL (3.4-4.8); Alkaline Phosphatase 156 U/L (40-110); Anion Gap 21 mmol/L (10-20); BUN (Urea Nitrogen) 52 mg/dL (8.4-25.7); Bilirubin, Total 0.6 mg/dL (0.2-1.2); Calc. Creatinine Clearance 0 mL/min (70-130); Calcium 8.6 mg/dL (7.8-10.44); Carbon Dioxide 26 mmol/L (23-31); Chloride 94 mmol/L (98-107); Estimated GFR 8; Globulin 3.4 g/dL (2.4-3.5); Glucose 150 mg/dL (83-110); Lipase 52 U/L (8-78); Potassium 4.1 mmol/L (3.5-5.1); Protein, Total 6.8 g/dL (5.8-8.1); Sodium 137 mmol/L (136-145)
[2024-01-05 11:08] LABS: Troponin I 3.806 ng/mL (< 0.028)
[2024-01-05] MEDS ORDERED: Heparin 5,000 UNITS/ML VIAL ONE (11:38)
[2024-01-05] MEDS ORDERED: Heparin 25,000 units/D5W 500 ML ONE (11:39)
[2024-01-05] MEDS ORDERED: Nitroglycerin 50 MG/250 ML BOT 0 ML ONE (11:39)
[2024-01-05 12:04] LABS: INR-International Normal Ratio 1.2; PTT 36.4 sec (22.9-36.1); Prothrombin Time 15.5 sec (12.0-14.7)
[2024-01-05] MEDS ORDERED: Adenosine 6 mg (2 mL) VIAL ONE (12:25)
[2024-01-05] MEDS ORDERED: Heparin 10,000 UNITS/ 10 ML VIAL ONE (12:25)
[2024-01-05] MEDS ORDERED: Nitroglycerin 50 MG/250 ML BOT 250 ML ONE (12:25)
[2024-01-05] MEDS ORDERED: Ondansetron PF 4 MG/2 ML Vial IVP PRN (12:29)
[2024-01-05] MEDS ORDERED: Acetaminophen 325 MG TAB PO PRN (12:29)
[2024-01-05] MEDS ORDERED: Morphine 2 MG/ML VIAL SLOW IVP PRN (12:31)
[2024-01-05] MEDS ORDERED: Nitroglycerin 0.4 MG TAB (25 Tab Bottle) SL PRN (12:31)
[2024-01-05] MEDS ORDERED: Heparin 10,000 UNITS/ 10 ML VIAL SLOW IVP SCH (12:45)
[2024-01-05] MEDS ORDERED: Heparin 25,000 units/D5W 500 ML IVPB SCH (12:45)
[2024-01-05] MEDS ORDERED: Hydrocortisone Sod Succ/PF 100 mg/2 ml Vial ONE ×2 (12:50→12:56)
[2024-01-05] MEDS ORDERED: EPINEPHrine 1 MG/ML VIAL ONE (12:54)
[2024-01-05] MEDS ORDERED: Midazolam HCl 2 mg/2 ml Vial ONE (13:20)
[2024-01-05] MEDS ORDERED: fentaNYL 50 mcg/mL 1 mL Vial ONE (13:20)
[2024-01-05] MEDS ORDERED: PHENYLEPHRINE-NS 100 MCG/ML 10 ML SYRINGE ONE (13:56)
[2024-01-05 16:30] LABS: Hemoglobin 10.7 g/dL (14.0-18.0); Platelet Count 187 10x3/uL (130-400)
[2024-01-05 16:46] LABS: Troponin I 3.838 ng/mL (< 0.028)
[2024-01-05 17:04] LABS: HBSAB Concentration 41.55 mIU/mL; HBsAg Index 0.59 S/CO (0-0.99); Hep B Core Total Ab NONREACTIVE (NonReactive); Hep B Core Total Index 0.19 S/CO (0-0.79); Hep B Surf AB REACTIVE (NonReactive); Hep B Surf Ag NONREACTIVE S/CO (NonReactive); Hep C IgG Ab NONREACTIVE S/CO (NonReactive); Hep C Index 0.11 S/CO (0-0.79)
[2024-01-05] MEDS: EPOETIN ALFA-EPBX (ESRD) 10,000 UNITS/ML VIAL SC SCH (19:25)
[2024-01-05] MEDS ORDERED: Atorvastatin Calcium 40 MG TAB PO SCH (21:00)
[2024-01-05] MEDS: Atorvastatin Calcium 40 MG TAB PO SCH (21:24)
[2024-01-05] MEDS: Famotidine/PF 20 mg/2ml Vial SLOW IVP SCH (21:24)
[2024-01-06] MEDS: Bisacodyl 5 MG TAB PO PRN (00:12)
[2024-01-06] MEDS: diphenhydrAMINE 50 MG/ML VIAL IVP SCH (00:12)
[2024-01-06 05:34] LABS: #Basophils Less than 0.03 10x3/uL (0.0-0.2); #Eosinphils Less than 0.03 10x3/uL (0.0-0.7); %Basophils 0.2 % (0.0-1.0); %Eosinophils 0.1 % (0.0-10.0); %Lymphocytes 9.5 % (21.0-51.0); %Monocytes 9.2 % (0.0-10.0); %Neutrophils 80.6 % (42.0-75.0); Hematocrit 31.2 % (42.0-52.0); Hemoglobin 9.9 g/dL (14.0-18.0); Mean Corpuscular HGB CONC 31.7 g/dL (32.0-36.0); Mean Corpuscular Hemoglobin 34.7 pg (27.0-31.0); Mean Corpuscular Volume 109.5 fL (78.0-98.0); Mean Platelet Volume 11.4 fL (7.4-10.4); Platelet Count 142 10x3/uL (130-400); RBC Distribution Width 16.4 % (11.5-14.5); Red Blood Cell (RBC) Count 2.85 mill/uL (4.70-6.10)
[2024-01-06 05:37] LABS: Phosphorus 3.8 mg/dL (2.3-4.7)
[2024-01-06 05:39] LABS: ALT (SGPT) 37 U/L (8-55); AST (SGOT) 113 U/L (5-34); Alkaline Phosphatase 135 U/L (40-110); Anion Gap 13 mmol/L (10-20); BUN (Urea Nitrogen) 38 mg/dL (8.4-25.7); Bilirubin, Total 0.5 mg/dL (0.2-1.2); Calc. Creatinine Clearance 4 mL/min (70-130); Calcium 8.3 mg/dL (7.8-10.44); Carbon Dioxide 27 mmol/L (23-31); Chloride 98 mmol/L (98-107); Estimated GFR 10; Globulin 2.9 g/dL (2.4-3.5); Glucose 128 mg/dL (83-110); Potassium 4.4 mmol/L (3.5-5.1); Protein, Total 5.9 g/dL (5.8-8.1); Sodium 134 mmol/L (136-145)
[2024-01-06] MEDS: Aspirin Chewable 81 MG TAB PO SCH (09:24)
[2024-01-07] MEDS: Artificial Tear Ophth Sol 15 ML BOT EA EYE PRN (01:02)
[2024-01-07] MEDS: Midodrine HCl 5 MG TAB PO SCH (01:03)
[2024-01-07 04:15] LABS: #Basophils 0.04 10x3/uL (0.0-0.2); %Basophils 0.4 % (0.0-1.0); %Eosinophils 1.7 % (0.0-10.0); %Monocytes 10.1 % (0.0-10.0); %Neutrophils 73.3 % (42.0-75.0); Hematocrit 31.3 % (42.0-52.0); Hemoglobin 10.2 g/dL (14.0-18.0); Mean Corpuscular HGB CONC 32.6 g/dL (32.0-36.0); Mean Corpuscular Hemoglobin 34.3 pg (27.0-31.0); Mean Corpuscular Volume 105.4 fL (78.0-98.0); Mean Platelet Volume 11.3 fL (7.4-10.4); Platelet Count 167 10x3/uL (130-400); Red Blood Cell (RBC) Count 2.97 mill/uL (4.70-6.10)
[2024-01-07 04:57] LABS: ALT (SGPT) 34 U/L (8-55); AST (SGOT) 96 U/L (5-34); Albumin 3.1 g/dL (3.4-4.8); Alkaline Phosphatase 122 U/L (40-110); Anion Gap 19 mmol/L (10-20); BUN (Urea Nitrogen) 56 mg/dL (8.4-25.7); Bilirubin, Direct 0.2 mg/dL (0.1-0.3); Bilirubin, Total 0.5 mg/dL (0.2-1.2); Calc. Creatinine Clearance 8 mL/min (70-130); Calcium 8.1 mg/dL (7.8-10.44); Carbon Dioxide 23 mmol/L (23-31); Chloride 95 mmol/L (98-107); Estimated GFR 8; Glucose 87 mg/dL (83-110); Magnesium 2.8 mg/dL (1.6-2.6); Potassium 4.6 mmol/L (3.5-5.1); Protein, Total 5.9 g/dL (5.8-8.1); Sodium 132 mmol/L (136-145)
[2024-01-07] MEDS: Apixaban 2.5 MG TAB PO SCH (08:51)
[2024-01-07 15:29] VITALS: BP 123/68; TEMP 98
[2024-01-07] MEDS ORDERED: Midodrine HCl 5 MG TAB PO SCH (21:00)
[2024-01-07] MEDS ORDERED: Non-Formulary Item 1 EACH (Midodrine [Midodrine] 10 MG Tab) PO SCH (21:00)
[2024-01-08] MEDS ORDERED: Calcitriol 0.25 MCG CAP PO SCH (09:00)
[2024-01-12] MEDS ORDERED: EPOETIN ALFA-EPBX (ESRD) 10,000 UNITS/ML VIAL SC SCH (12:00)
== END 2024-01-07 16:01 | disposition home or self-care (01) | DRG 280 ==
LOC: ERS 10:06 → SDC 13:15 → CCU 15:31 → 2NO 01-06 13:09
PROVIDERS: ADMIT Internal Medicine; ATTEND Family Medicine
PROC: 4A023N7 Measurement of Cardiac Sampling and Pressure, Left Heart, Percutaneous Approach (ICD-10-PCS; principal; 2024-01-05)
PROC: B2151ZZ Fluoroscopy of Left Heart using Low Osmolar Contrast (ICD-10-PCS; 2024-01-05)
PROC: B2111ZZ Fluoroscopy of Multiple Coronary Arteries using Low Osmolar Contrast (ICD-10-PCS; 2024-01-05)
PROC: 5A1D70Z Performance of Urinary Filtration, Intermittent, Less than 6 Hours Per Day (ICD-10-PCS; 2024-01-05)
DX: I21.4 Non-ST elevation (NSTEMI) myocardial infarction (principal); N18.6 End stage renal disease; I13.2 Hypertensive heart and chronic kidney disease with heart failure and with stage 5 chronic kidney disease, or end stage renal disease; I50.32 Chronic diastolic (congestive) heart failure; I42.9 Cardiomyopathy, unspecified; N25.81 Secondary hyperparathyroidism of renal origin; I25.10 Atherosclerotic heart disease of native coronary artery without angina pectoris; I95.1 Orthostatic hypotension; C43.9 Malignant melanoma of skin, unspecified; D63.1 Anemia in chronic kidney disease; Z88.8 Allergy status to other drugs, medicaments and biological substances; Z79.899 Other long term (current) drug therapy; Z79.890 Hormone replacement therapy; Z95.1 Presence of aortocoronary bypass graft; Z99.2 Dependence on renal dialysis
CPT/HCPCS: 36415; 71045; 74018; 80048; 80053; 80076; 83690; 83735; 83880; 83970; 84100; 84484; 85025; 85347; 85610; 85730; 86704; 86706; 86803; 87340; 93005; 93306; 93458; 93459; 93798; 99152; 99153; C1760; C1769; C1887; C1894; J0153; J0171; J1200; J1644; J1720; J2250; J2272; J2405; J3010; Q5105; S0028